=== PATIENT | female | born 1970 | race Asian ===

== ENCOUNTER 2023-10-13 14:21 | Outpatient (CLI) | payer OTHER | END 2023-10-13 18:20 | disposition home or self-care (01) | LOC: SCT 14:21 | PROVIDERS: ATTEND Orthopaedic Surgery | DX: M17.11 Unilateral primary osteoarthritis, right knee (principal) ==

== ENCOUNTER 2023-12-02 06:14 | Day surgery (SDC) | payer OTHER ==
[~2023-12-02] VITALS: Ht 157.5 cm; Wt 90.7 kg
[2023-12-02] MEDS ORDERED: ACETAMINOPHEN 500 MG TABLET ONE (06:22)
[2023-12-02] MEDS: ACETAMINOPHEN 500 MG TABLET PO ONE (06:38)
[2023-12-02] MEDS ORDERED: CEFAZOLIN SOD 2 GM in D5W 50 ML IV ONE (07:00)
[2023-12-02] MEDS ORDERED: PROPOFOL 200MG/ 20ML VIAL (DIPRIVAN) IV ONE (07:45)
[2023-12-02] MEDS ORDERED: TRANEXAMIC ACID 1,000 MG/10 ML VIAL ONE (07:45)
[2023-12-02] MEDS ORDERED: fentaNYL CITRATE/PF 100 MCG/2 ML AMP ONE (07:45)
[2023-12-02] MEDS ORDERED: KETOROLAC TROMETHAMINE 30 MG VIAL ONE (07:45)
[2023-12-02] MEDS ORDERED: LR 1,000 ML IV.SOLN IV ONE (07:45)
[2023-12-02] MEDS ORDERED: SEVOFLURANE 15 MIN GAS INH ONE (07:45)
[2023-12-02] MEDS ORDERED: NS IRRIG SOLN 1000 ML IR ONE (07:45)
[2023-12-02] MEDS ORDERED: DEXAMETHASONE SOD PHOSPHATE 4 MG/ML VIAL ONE (07:45)
[2023-12-02] MEDS ORDERED: ONDANSETRON HCL 4 MG/2 ML VIAL ONE (07:45)
[2023-12-02] MEDS ORDERED: ROPIVACAINE HCL/PF 5 MG/ML 0.5% 30 ML VIAL ONE (07:45)
[2023-12-02] MEDS ORDERED: MIDAZOLAM HCL 2 MG/2 ML VIAL (VERSED) ONE (07:45)
[2023-12-02] MEDS ORDERED: WATER FOR IRRIGATION,STERILE 1,000 ML IRRIG.SOLN IR ONE (07:45)
[2023-12-02 08:54] VITALS: PULSE 75; RESP 20; TEMP 97.2; O2SAT 99
[2023-12-02] MEDS ORDERED: ONDANSETRON HCL 4 MG/2 ML VIAL IVP PRN ×2 (09:45→11:45)
[2023-12-02] MEDS ORDERED: METOCLOPRAMIDE HCL 10 MG/2 ML VIAL IVP PRN (09:45)
[2023-12-02] MEDS ORDERED: hydrALAZINE HCL 20 MG/ML VIAL IVP PRN (09:45)
[2023-12-02] MEDS ORDERED: OXYCODONE/ACETAMINOPHEN 5-325 TABLET PO PRN (11:00)
[2023-12-02] MEDS ORDERED: traMADol HCL HCL 50 MG TABLET (ULTRAM) PO PRN (11:00)
[2023-12-02] MEDS ORDERED: BISACODYL 10 MG/SUPPOSITORY RC PRN (11:00)
[2023-12-02] MEDS ORDERED: HYDROmorphone 1 MG/ML INJ. CARTRIDGE IVP PRN ×3 (11:00)
[2023-12-02] MEDS ORDERED: DIPHENHYDRAMINE HCL 25 MG CAPSULE PO PRN (11:00)
[2023-12-02] MEDS ORDERED: oxyCODONE HCL 5 MG TABLET PO PRN ×2 (11:00)
[2023-12-02] MEDS ORDERED: LORATADINE 10 MG TABLET PO PRN (11:00)
[2023-12-02] MEDS ORDERED: ACETAMINOPHEN I.V. 1000 MG 100 ML IV ONE (11:02)
[2023-12-02] MEDS ORDERED: ceFAZolin SODIUM 2 GM in D5W 50 ML IV SCH (11:15)
[2023-12-02] MEDS ORDERED: HYDROmorphone 1 MG/ML INJ. CARTRIDGE ONE (11:25)
[2023-12-02] MEDS: HYDROmorphone 1 MG/ML INJ. CARTRIDGE IVP PRN (11:28)
[2023-12-02 12:24] VITALS: BP_SYST 127
[2023-12-02] MEDS ORDERED: ACETAMINOPHEN 500 MG TABLET PO SCH (14:00)
[2023-12-02] MEDS ORDERED: SENNOSIDES/DOCUSATE SODIUM 1 TAB TABLET(SENOKOT-S) PO SCH (21:00)
[2023-12-03] MEDS ORDERED: ASPIRIN 81 MG TAB.CHEW PO SCH (09:00)
[2023-12-03] MEDS ORDERED: CELECOXIB 200 MG CAPSULE PO SCH (11:00)
[2023-12-03] MEDS: ACETAMINOPHEN I.V. 1000 MG 100 ML IV ONE (11:05)
== END 2023-12-02 16:20 | disposition home or self-care (01) ==
LOC: SDS 06:14 → SMU 06:15 → EDUNIT# 07:30 → SDS 16:20
PROVIDERS: ATTEND Orthopaedic Surgery
DX: M17.11 Unilateral primary osteoarthritis, right knee (principal); M25.561 Pain in right knee; M25.761 Osteophyte, right knee; I10 Essential (primary) hypertension; E78.5 Hyperlipidemia, unspecified; E11.9 Type 2 diabetes mellitus without complications; K21.9 Gastro-esophageal reflux disease without esophagitis; E66.01 Morbid (severe) obesity due to excess calories; G47.33 Obstructive sleep apnea (adult) (pediatric); M79.7 Fibromyalgia; Z68.36 Body mass index [BMI] 36.0-36.9, adult; Z87.442 Personal history of urinary calculi; Z98.890 Other specified postprocedural states; Z79.899 Other long term (current) drug therapy; Z82.49 Family history of ischemic heart disease and other diseases of the circulatory system; Z80.9 Family history of malignant neoplasm, unspecified
CPT/HCPCS: 27447; 97162; 73560; 97116; 97530; 82948; 88305; 88311; 64447; J0690; J0696; J1100; J1885; J2250; J2405; J2704; J3010; J1171; J3490; J7060 ×2; J7120; C1776 ×4; C1713; J0131; S2900